=== PATIENT | female | born 1970 | race Caucasian/White ===

== ENCOUNTER 2020-02-21 06:21 | Inpatient (IN) | payer BC ==
[2020-02-21] VITALS (18 sets, daily range): BP systolic 96–142; BP diastolic 60–82
[~2020-02-21] VITALS: Ht 172.7 cm; Wt 100.0 kg
[2020-02-21] MEDS ORDERED: normal saline 1000ml 1,000 ML IV ONE (06:37)
[2020-02-21] MEDS: diatr meglu/diatrizoate 30ml oral sol.-(3 dose) bottle PO SCH ×2 (06:57→07:47)
[2020-02-21 07:07] LABS: BASOPHILS % (AUTO) 0.2 % (0-1); LYMPHOCYTES # (AUTO) 0.5 X10'3 (1.1-4.8); MEAN CORPUSCULAR VOLUME 92.4 FL (78-98); MONOCYTES # (AUTO) 0.2 X10'3 (0-0.9); NEUTROPHILS % (AUTO) 92.9 % (42-75)
[2020-02-21 07:09] LABS: EOSINOPHILS % (AUTO) 0.3 % (0-6); HEMATOCRIT 37.3 % (35.0-45.0); LYMPHOCYTES % (AUTO) 4.7 % (21-51); MEAN CORPUSCULAR HEMOGLOBIN 29.8 PG (27.0-31.0); MEAN CORPUSCULAR HGB CONC 32.3 g/dL (33.0-36.5); MEAN PLATELET VOLUME 8.5 FL (7.4-10.4); MONOCYTES % (AUTO) 1.9 % (2-12); PLATELET COUNT 277 X10'3 (140-440); RED BLOOD COUNT 4.04 X10'6 (4.20-5.60); RED CELL DISTRIBUTION WIDTH 14.5 % (11.5-14.5); WHITE BLOOD COUNT 9.7 X10'3 (4.5-11.0)
[2020-02-21 07:26] LABS: ALANINE AMINOTRANSFERASE 29 U/L (12-78); ALBUMIN 3.6 G/DL (3.4-5.0); ALBUMIN/GLOBULIN RATIO 0.9 (1.1-1.5); ALKALINE PHOSPHATASE 131 IU/L (46-116); ANION GAP 11 (8-16); BILIRUBIN,TOTAL 0.4 MG/DL (0.1-1.0); BLOOD UREA NITROGEN 10 MG/DL (7-18); BUN/CREATININE RATIO 16.9 (6.6-38.0); CALCIUM 8.7 MG/DL (8.5-10.1); CHLORIDE 106 MMOL/L (99-107); CREATININE 0.59 MG/DL (0.40-0.90); GLUCOSE 170 MG/DL (70-104); LIPASE 136 U/L (73-393); SODIUM 141 MMOL/L (135-145); TOTAL CARBON DIOXIDE 23.8 MMOL/L (24-32); TOTAL PROTEIN 7.6 G/DL (6.4-8.2); eGFR > 90 ML/MIN
[2020-02-21 07:27] LABS: ASPARTATE AMINO TRANSFERASE 67 U/L (10-37); POTASSIUM 4.1 MMOL/L (3.5-5.1)
[2020-02-21 07:30] LABS: PARTIAL THROMBOPLASTIN TIME 21 SECONDS (22-32)
[2020-02-21 07:35] LABS: CLARITY,URINE CLEAR (Clear); COLOR,URINE STRAW (Yellow); GLUCOSE, URINE 500 mg/dl (Neg); KETONES,URINE NEGATIVE (Neg); LEUKOCYTE ESTERASE ,URINE NEGATIVE (Neg); NITRITES, URINE NEGATIVE (Neg); OCCULT BLOOD,URINE TRACE-LYSED (Neg); PH,URINE 6.5 (4.8-8.0); PROTEIN,URINE NEGATIVE (Neg); UROBILINOGEN,URINE 0.2 E.U/dL (0.2-1.0)
[2020-02-21 07:36] LABS: UA COLLECTION TYPE CLN CATCH MIDSTREAM
[2020-02-21 07:41] LABS: BACTERIA,URINE NONE SEEN /HPF (Neg); MUCUS STRANDS NONE SEEN /LPF (Neg); RBC,URINE 0-2 /HPF (0-2); SQUAMOUS EPITHELIAL CELL,UR FEW /LPF (FEW); WBC,URINE 0-4 /HPF (0-4)
[2020-02-21] MEDS ORDERED: iohexol 300mg/ml 100ml inj. ONE (08:04)
[2020-02-21] MEDS ORDERED: ondansetron/PF 4mg/2ml inj IV ONE (09:15)
[2020-02-21] MEDS ORDERED: morphine 4 MG/ML inj SYRINge IV ONE (09:15)
[2020-02-21] MEDS ORDERED: METH60CP PO (09:37)
--- NOTE | 2020-02-21 09:38 | NUR ---
Pt transported to OR via [facility] with OR staff.
--- NOTE | 2020-02-21 09:43 | NUR ---
Called report to CLAUDIA Rosenthal in recovery room. 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
[2020-02-21] MEDS ORDERED: ringers solution, lacted 1,000 ML IV SCH (09:46)
[2020-02-21] MEDS ORDERED: ringers solution, lacted 1,000 ML IV ONE (09:46)
[2020-02-21] MEDS ORDERED: morphine 4 MG/ML inj SYRINge IV PRN (09:50)
[2020-02-21] MEDS ORDERED: morphine 2 MG/ML inj. syringe IV PRN ×3 (09:50→12:40)
[2020-02-21] MEDS ORDERED: fentaNYL/PF 50MCG/1 ML 2ML syringe IV PRN ×2 (09:50)
[2020-02-21] MEDS ORDERED: ondansetron/PF 4mg/2ml inj IV PRN ×3 (09:50→12:40)
[2020-02-21] MEDS ORDERED: labetalol 20mg/4ml (5mg/ml) syringe IV PRN (09:50)
[2020-02-21] MEDS ORDERED: hydrALAZINE 20mg/ml inj. IV PRN (09:50)
[2020-02-21] MEDS ORDERED: acetaminophen 325mg tablet PO PRN ×3 (10:55→12:40)
[2020-02-21] MEDS ORDERED: mag hydrox/Alum hydrox/simeth 30ml oral suspension PO PRN ×2 (10:55→12:40)
[2020-02-21] MEDS ORDERED: magnesium hydroxide 30ml (MOM) UD suspension PO PRN ×2 (10:55→12:40)
[2020-02-21] MEDS ORDERED: midazolam 2 mg/2 ml injection ONE (11:12)
[2020-02-21] MEDS ORDERED: fentaNYL/PF 50MCG/1 ML 2ML syringe ONE ×2 (11:12→12:17)
[2020-02-21] MEDS ORDERED: BUPIVAcaine/PF 2.5 mg/ml (0.25%) 30ml vial ONE (11:14)
[2020-02-21] MEDS ORDERED: LIDOcaine 1% 30ml preserv. free vial ONE (11:14)
[2020-02-21] MEDS ORDERED: BUPIVAcaine/PF 2.5mg/ml (0.25%) 10ml vial ONE (11:14)
[2020-02-21] MEDS ORDERED: LIDOcaine 2% (20mg/ml) 5ml vial ONE (11:15)
[2020-02-21] MEDS ORDERED: BUPIVACAINE liposomal/PF 13.3 MG/ML vial IM ONE (11:15)
[2020-02-21] MEDS ORDERED: dexamethasone sod phosphate 10mg/ml inj ONE (11:15)
[2020-02-21] MEDS ORDERED: sevoflurane 250ml liquid IH ONE (11:15)
[2020-02-21] MEDS ORDERED: glycopyrrolate 0.2mg/ml inj ONE (11:15)
[2020-02-21] MEDS ORDERED: neostigmine methylsulfate 1 MG/ML 10ml vial ONE (11:15)
[2020-02-21] MEDS ORDERED: propofol inj 20 ML IV ONE (11:15)
[2020-02-21] MEDS ORDERED: LIDOcaine 1%/PF 5ML 10 MG/ML VIAL ONE (11:15)
[2020-02-21] MEDS ORDERED: metoprolol tartrate 1mg/ml inj IV ONE ×2 (11:15→11:58)
[2020-02-21] MEDS ORDERED: rocuronium 10mg/ml inj IV ONE (11:15)
[2020-02-21] MEDS ORDERED: ondansetron/PF 4mg/2ml inj ONE (11:16)
[2020-02-21] MEDS ORDERED: ceFAZolin 1000mg inj ONE ×2 (11:17)
[2020-02-21] MEDS ORDERED: labetalol 20mg/4ml (5mg/ml) syringe IV ONE ×2 (11:28→11:44)
[2020-02-21] MEDS ORDERED: METH20TA40 PO (11:43)
[2020-02-21] MEDS ORDERED: dextrose 5%-1/2 normal saline 1,000 ML IV SCH (12:39)
[2020-02-21] MEDS ORDERED: HYDROcodone/acetaminophen 10/325mg tab PO PRN (12:40)
[2020-02-21] MEDS ORDERED: HYDROcodone/acetaminophen 5mg/325mg tablet PO PRN (12:40)
--- NOTE | 2020-02-21 12:56 | NUR ---
Received from OR via , accompanied by Anesthesiologist DR CAMPOS and report given by Anesthesiolgist. AWAKENS TO VOICE. VITALS STABLE. DRESSING DI. ZEYNEP PAIN. ALLEN WITH CLEAR URINE.
[2020-02-21] MEDS ORDERED: naloxone 0.4 mg/ml inj IV PRN (13:00)
[2020-02-21] MEDS ORDERED: CADD PCA waste documentation MC PRN (13:00)
--- NOTE | 2020-02-21 13:59 | NUR ---
Received report from cupola melter Galo for Joyce primary RN. All questions answered. Patient will be coming to the floor soon. Primary RN Joyce will assume patient care when patient is on the floor.
--- NOTE | 2020-02-21 14:16 | NUR ---
Report called to receiving nurse. Transferred via BED Belongings . Special Issues communicated to receiving nurse. AWAKE AND ORIENTED. VITALS STABLE. DRESSING DI. ZEYNEP PAIN. TO SURGICAL RM 345B AT THIS TIME.
[2020-02-21] MEDS: HYDROmorphone/NS 1 mg/ml CADD 50 ML IV SCH ×6 (14:35→23:00)
--- NOTE | 2020-02-21 14:45 | NUR ---
Patient in room [facility]. I have received report from Deann TAYLOR and had the opportunity to ask questions and assume patient care.
--- NOTE | 2020-02-21 17:43 | NUR ---
post op VSS. Midline incision CDI, patient using dilaudid cadd pump appropriately, pain is 4/10. commenced on clear liquid diet. Tolerating well. all cares given IDC in place patient has good urine output.
--- NOTE | 2020-02-21 18:05 | NUR ---
Problems reprioritized. Patient report given, questions answered & plan of care reviewed with Maine Olivas RN.
--- NOTE | 2020-02-21 18:29 | NUR ---
Patient in room [facility]. I have received report from CLAUDIA Cook and had the opportunity to ask questions and assume patient care.
[2020-02-21] MEDS: heparin, porcine 5000 units/ml vial SQ SCH (20:21)
[2020-02-22] MEDS: HYDROmorphone/NS 1 mg/ml CADD 50 ML IV SCH ×12 (01:00→23:00)
[2020-02-22 04:00] VITALS: BP 113/69
[2020-02-22 05:26] LABS: BASOPHILS % (AUTO) 0.3 % (0-1); EOSINOPHILS % (AUTO) 0.2 % (0-6); HEMATOCRIT 34.1 % (35.0-45.0); HEMOGLOBIN 11.2 g/dl (12.0-16.0); LYMPHOCYTES # (AUTO) 1.4 X10'3 (1.1-4.8); MEAN CORPUSCULAR HEMOGLOBIN 30.3 PG (27.0-31.0); MEAN CORPUSCULAR HGB CONC 32.9 g/dL (33.0-36.5); MEAN CORPUSCULAR VOLUME 92.1 FL (78-98); MEAN PLATELET VOLUME 7.6 FL (7.4-10.4); MONOCYTES # (AUTO) 0.7 X10'3 (0-0.9); MONOCYTES % (AUTO) 7.1 % (2-12); NEUTROPHILS # (AUTO) 7.3 X10'3 (1.8-7.7); NEUTROPHILS % (AUTO) 77.4 % (42-75); PLATELET COUNT 231 X10'3 (140-440); RED BLOOD COUNT 3.71 X10'6 (4.20-5.60); RED CELL DISTRIBUTION WIDTH 14.7 % (11.5-14.5); WHITE BLOOD COUNT 9.4 X10'3 (4.5-11.0)
[2020-02-22 05:41] LABS: ALBUMIN 2.8 G/DL (3.4-5.0); ANION GAP 5 (8-16); BLOOD UREA NITROGEN 7 MG/DL (7-18); BUN/CREATININE RATIO 12.1 (6.6-38.0); CALCIUM 8.4 MG/DL (8.5-10.1); CHLORIDE 108 MMOL/L (99-107); CREATININE 0.58 MG/DL (0.40-0.90); GLUCOSE 109 MG/DL (70-104); SODIUM 144 MMOL/L (135-145); TOTAL CARBON DIOXIDE 31.1 MMOL/L (24-32); eGFR > 90 ML/MIN
--- NOTE | 2020-02-22 06:20 | NUR ---
Problems reprioritized. Patient report given, questions answered & plan of care reviewed with CLAUDIA Giordano.
--- NOTE | 2020-02-22 06:30 | NUR ---
Patient in room [facility]. I have received report from CLAUDIA Giordano and had the opportunity to ask questions and assume patient care.
--- NOTE | 2020-02-22 06:30 | NUR ---
Patient in room [facility]. I have received report from Maine Olivas RN and had the opportunity to ask questions and assume patient care.
[2020-02-22 07:19] VITALS: BP 126/78
[2020-02-22] MEDS: heparin, porcine 5000 units/ml vial SQ SCH ×2 (08:52→20:18)
[2020-02-22 11:00] VITALS: BP 123/78
[2020-02-22 17:01] VITALS: BP 132/87
--- NOTE | 2020-02-22 17:39 | NUR ---
Problems reprioritized. Patient report given, questions answered & plan of care reviewed with CLAUDIA Giordano.
--- NOTE | 2020-02-22 18:50 | NUR ---
Problems reprioritized. Patient report given, questions answered & plan of care reviewed with Ernst TAYLOR.
[2020-02-22 23:34] VITALS: BP 111/84
[2020-02-23] MEDS: HYDROmorphone/NS 1 mg/ml CADD 50 ML IV SCH ×5 (01:00→09:00)
[2020-02-23 05:12] LABS: BASOPHILS # (AUTO) 0.1 X10'3 (0-0.2); BASOPHILS % (AUTO) 0.7 % (0-1); EOSINOPHILS # (AUTO) 0.2 X10'3 (0-0.9); EOSINOPHILS % (AUTO) 2.3 % (0-6); HEMATOCRIT 37.3 % (35.0-45.0); HEMOGLOBIN 12.2 g/dl (12.0-16.0); LYMPHOCYTES # (AUTO) 1.3 X10'3 (1.1-4.8); MEAN CORPUSCULAR HEMOGLOBIN 30.6 PG (27.0-31.0); MEAN CORPUSCULAR HGB CONC 32.8 g/dL (33.0-36.5); MEAN CORPUSCULAR VOLUME 93.4 FL (78-98); MEAN PLATELET VOLUME 7.8 FL (7.4-10.4); MONOCYTES # (AUTO) 0.8 X10'3 (0-0.9); MONOCYTES % (AUTO) 9.4 % (2-12); NEUTROPHILS # (AUTO) 6.4 X10'3 (1.8-7.7); NEUTROPHILS % (AUTO) 72.6 % (42-75); PLATELET COUNT 252 X10'3 (140-440); RED BLOOD COUNT 3.99 X10'6 (4.20-5.60); RED CELL DISTRIBUTION WIDTH 14.2 % (11.5-14.5); WHITE BLOOD COUNT 8.9 X10'3 (4.5-11.0)
--- NOTE | 2020-02-23 05:30 | NUR ---
FC removed, pt tolerated well
[2020-02-23 05:37] LABS: ALBUMIN 2.9 G/DL (3.4-5.0); ANION GAP 5 (8-16); BLOOD UREA NITROGEN 12 MG/DL (7-18); BUN/CREATININE RATIO 20.7 (6.6-38.0); CALCIUM 8.7 MG/DL (8.5-10.1); CHLORIDE 102 MMOL/L (99-107); CREATININE 0.58 MG/DL (0.40-0.90); GLUCOSE 104 MG/DL (70-104); POTASSIUM 3.7 MMOL/L (3.5-5.1); SODIUM 141 MMOL/L (135-145); TOTAL CARBON DIOXIDE 34.3 MMOL/L (24-32); eGFR > 90 ML/MIN
--- NOTE | 2020-02-23 06:41 | NUR ---
Patient in room [facility]. I have received report from Ernst TAYLOR and had the opportunity to ask questions and assume patient care.
[2020-02-23 07:00] VITALS: BP 112/71
--- NOTE | 2020-02-23 07:06 | NUR ---
Patient in room [facility]. I have received report from CLAUDIA Manzo and had the opportunity to ask questions and assume patient care.
[2020-02-23] MEDS: heparin, porcine 5000 units/ml vial SQ SCH ×2 (08:05→19:56)
[2020-02-23 08:07] VITALS: BP 112/71
--- NOTE | 2020-02-23 08:37 | NUR ---
chart access as instructor for [facility]
[2020-02-23 11:20] VITALS: BP 107/63
[2020-02-23] MEDS: oxyCODONE/APAP 5-325mg tablet PO PRN ×3 (13:06→21:20)
[2020-02-23 14:12] VITALS: BP 110/71
--- NOTE | 2020-02-23 17:28 | NUR ---
Problems reprioritized. Patient report given, questions answered & plan of care reviewed with CLAUDIA Manzo.
[2020-02-23 18:00] VITALS: BP 96/58
--- NOTE | 2020-02-23 18:20 | NUR ---
Problems reprioritized. Patient report given, questions answered & plan of care reviewed with Ernst TAYLOR.
[2020-02-24] VITALS: BP 119/73
[2020-02-24] MEDS: oxyCODONE/APAP 5-325mg tablet PO PRN ×3 (03:17→12:32)
[2020-02-24 06:08] LABS: ALBUMIN 2.6 G/DL (3.4-5.0); ANION GAP 3 (8-16); BLOOD UREA NITROGEN 11 MG/DL (7-18); BUN/CREATININE RATIO 16.4 (6.6-38.0); CALCIUM 8.1 MG/DL (8.5-10.1); CHLORIDE 102 MMOL/L (99-107); CREATININE 0.67 MG/DL (0.40-0.90); GLUCOSE 97 MG/DL (70-104); POTASSIUM 3.7 MMOL/L (3.5-5.1); SODIUM 139 MMOL/L (135-145); TOTAL CARBON DIOXIDE 34.1 MMOL/L (24-32); eGFR > 90 ML/MIN
[2020-02-24 06:17] LABS: BASOPHILS % (AUTO) 0.6 % (0-1); EOSINOPHILS # (AUTO) 0.2 X10'3 (0-0.9); HEMATOCRIT 34.4 % (35.0-45.0); HEMOGLOBIN 11.5 g/dl (12.0-16.0); LYMPHOCYTES # (AUTO) 1.4 X10'3 (1.1-4.8); LYMPHOCYTES % (AUTO) 17.5 % (21-51); MEAN CORPUSCULAR HEMOGLOBIN 30.9 PG (27.0-31.0); MEAN CORPUSCULAR HGB CONC 33.3 g/dL (33.0-36.5); MEAN CORPUSCULAR VOLUME 92.7 FL (78-98); MEAN PLATELET VOLUME 7.6 FL (7.4-10.4); MONOCYTES # (AUTO) 0.6 X10'3 (0-0.9); MONOCYTES % (AUTO) 7.7 % (2-12); NEUTROPHILS # (AUTO) 5.7 X10'3 (1.8-7.7); NEUTROPHILS % (AUTO) 71.2 % (42-75); PLATELET COUNT 238 X10'3 (140-440); RED BLOOD COUNT 3.71 X10'6 (4.20-5.60); RED CELL DISTRIBUTION WIDTH 13.9 % (11.5-14.5)
[2020-02-24] MEDS: heparin, porcine 5000 units/ml vial SQ SCH (08:19)
[2020-02-24 08:45] VITALS: BP 126/75
[2020-02-24 12:06] VITALS: BP 124/67
[2020-02-24] MEDS ORDERED: PER5325T PO (14:57)
--- NOTE | 2020-02-24 15:45 | NUR ---
Patient discharged home, patient alert, oriented, and appropriate for discharge. Patient prescription called into [facility], no paper script provided. Patient verbalized understanding of discharge instructions and will follow up with MD Pritchett in 1-2 weeks. Patient IV's removed. Patient not on tele. No home meds were brought in. Patient left with all belongings and was escorted down by a member of the staff.
== END 2020-02-24 15:45 | disposition home or self-care (01) | DRG 356 ==
LOC: ER 06:22 → SUR 3N 10:56
PROVIDERS: ADMIT Surgery; ATTEND Surgery
PROC: 0DQV0ZZ Repair Mesentery, Open Approach (ICD-10-PCS; principal; 2020-02-21 11:15)
DX: K46.9 Unspecified abdominal hernia without obstruction or gangrene (principal); K56.2 Volvulus; E27.9 Disorder of adrenal gland, unspecified; Z98.84 Bariatric surgery status
CPT/HCPCS: 96361; 96374; 96375; 99285; Z7506; Z7508; 36415; 74177; 80048; 80053; 81001; 83690; 83880; 85025; 85610; 85730; 87081; A4215; A4618; A7000; C1758; C9290; G0378; J0690; J1100; J1170; J1644; J2001; J2250; J2270; J2405; J2704; J2710; J3010; J3490; J7030; J7120; Q9963; Q9967

== ENCOUNTER 2021-01-05 08:11 | Day surgery (SDC) | payer BC ==
[2020-12-29 15:15] LABS: BASOPHILS # (AUTO) 0.1 X10'3 (0-0.2); BASOPHILS % (AUTO) 1.1 % (0-1); EOSINOPHILS % (AUTO) 0.8 % (0-6); LYMPHOCYTES # (AUTO) 1.5 X10'3 (1.1-4.8); LYMPHOCYTES % (AUTO) 29.1 % (21-51); MEAN CORPUSCULAR HEMOGLOBIN 30.6 PG (27.0-31.0); MEAN CORPUSCULAR HGB CONC 32.6 g/dL (33.0-36.5); MEAN CORPUSCULAR VOLUME 93.9 FL (78-98); MEAN PLATELET VOLUME 7.5 FL (7.4-10.4); MONOCYTES # (AUTO) 0.4 X10'3 (0-0.9); NEUTROPHILS # (AUTO) 3.1 X10'3 (1.8-7.7); PRE OP HEMATOCRIT 36.7 % (35.0-45.0); PRE OP PLATELET COUNT 321 X10'3 (140-440); RED BLOOD COUNT 3.91 X10'6 (4.20-5.60); RED CELL DISTRIBUTION WIDTH 15.6 % (11.5-14.5)
[2020-12-29 15:30] LABS: ALBUMIN 3.8 G/DL (3.4-5.0); ALBUMIN/GLOBULIN RATIO 0.9 (1.1-1.5); ALKALINE PHOSPHATASE 143 IU/L (46-116); BLOOD UREA NITROGEN 11 MG/DL (7-18); CALCIUM 8.9 MG/DL (8.5-10.1); CHLORIDE 105 MMOL/L (99-107); PRE OP ALT 21 U/L (30-65); PRE OP ANION GAP 6 (8-16); PRE OP AST 55 U/L (10-37); PRE OP BILIRUB, TOTAL 0.3 MG/DL (0.0-1.0); PRE OP GLUCOSE 107 MG/DL (70-104); PRE OP POTASSIUM 3.7 MMOL/L (3.4-5.1); PRE OP SODIUM 141 MMOL/L (135-145); TOTAL CARBON DIOXIDE 29.9 MMOL/L (24-32); eGFR > 90 ML/MIN
[~2021-01-05] VITALS: Ht 172.7 cm; Wt 104.3 kg
[2021-01-05] VITALS (20 sets, daily range): BP systolic 136–190; BP diastolic 89–101
[~2021-01-05 08:11] MED LIST: ACET-2971 PO; ESTR1VAG VG; METH20TA40 PO; OXYB5TAB29 PO; cefazolin/dext.iso 2gm/100ml IV ONE; famotidine 20mg tablet PO ONE; ringers solution, lacted 1,000 ML IV SCH
[2021-01-05] MEDS ORDERED: LIDOcaine 1% (10mg/ml) 2ml vial ONE (08:24)
[2021-01-05] MEDS ORDERED: BUPIVAcaine/PF 2.5 mg/ml (0.25%) 30ml vial ONE (10:01)
[2021-01-05] MEDS ORDERED: BUPIVACAINE liposomal/PF 13.3 MG/ML vial IM ONE (10:01)
[2021-01-05] MEDS ORDERED: LIDOcaine 1% 30ml preserv. free vial ONE (10:01)
[2021-01-05] MEDS ORDERED: BUPIVAcaine/PF 2.5mg/ml (0.25%) 10ml vial ONE (10:01)
[2021-01-05] MEDS ORDERED: fentaNYL/PF 50MCG/1 ML 2ML syringe IV PRN (10:15)
[2021-01-05] MEDS ORDERED: ringers solution, lacted 1,000 ML IV SCH (10:15)
[2021-01-05] MEDS ORDERED: hydrALAZINE 20mg/ml inj. IV PRN (10:15)
[2021-01-05] MEDS ORDERED: labetalol 20mg/4ml (5mg/ml) syringe IV PRN (10:15)
[2021-01-05] MEDS ORDERED: morphine 2 MG/ML inj. syringe IV PRN (10:15)
[2021-01-05] MEDS ORDERED: ondansetron/PF 4mg/2ml inj IV PRN (10:15)
[2021-01-05] MEDS ORDERED: midazolam 1 mg/ML 2ml injection ONE (10:21)
[2021-01-05] MEDS ORDERED: fentaNYL/PF 50MCG/1 ML 2ML syringe ONE ×2 (10:21)
[2021-01-05] MEDS ORDERED: propofol inj 20 ML IV ONE (10:28)
[2021-01-05] MEDS ORDERED: rocuronium 10mg/ml inj IV ONE (10:28)
[2021-01-05] MEDS ORDERED: glycopyrrolate 0.2mg/ml inj ONE (10:28)
[2021-01-05] MEDS ORDERED: LIDOcaine 2% (20mg/ml) 5ml vial ONE (10:28)
[2021-01-05] MEDS ORDERED: ondansetron/PF 4mg/2ml inj ONE (10:30)
[2021-01-05] MEDS ORDERED: labetalol 20mg/4ml (5mg/ml) syringe IV ONE (10:32)
--- NOTE | 2021-01-05 12:06 | NUR ---
Received from OR via [facility], accompanied by Anesthesiologist DR CAMPOS and report given by Anesthesiologist. PT VERY DROWSY, ABDOMEN W/3 LAP SITES W/BANDAIDS CDI. Addendum: 01/05/21 at 1244 by Marisol Chapman RN Amended: Links added.
[2021-01-05] MEDS ORDERED: oxyCODONE/APAP 5-325mg tablet PO PRN ×2 (12:20)
[2021-01-05] MEDS: morphine 4 MG/ML inj SYRINge IV PRN ×2 (12:24→12:46)
[2021-01-05] MEDS: fentaNYL/PF 50MCG/1 ML 2ML syringe IV PRN ×2 (13:06→13:37)
[2021-01-05] MEDS ORDERED: HYDROcodone/acetaminophen 10/325mg tab PO PRN ×2 (13:50)
--- NOTE | 2021-01-05 16:06 | NUR ---
PT UP AND ABLE TO AMBULATE SAFELY, VOIDED, PAIN TOLERABLE. D/C INSTRUCTIONS GIVEN AND GONE OVER W/PT WHO VERBALIZED UNDERSTANDING. PT D/CD TO HOME VIA W/C TO PRIVATE VEHICLE. Addendum: 01/05/21 at 1618 by Marisol Chapman RN Amended: Links added.
== END 2021-01-05 16:06 | disposition home or self-care (01) ==
LOC: PAS 08:11
PROVIDERS: ATTEND Surgery
DX: K43.2 Incisional hernia without obstruction or gangrene (principal); M62.08 Separation of muscle (nontraumatic), other site; Z20.822 Contact with and (suspected) exposure to COVID-19; E66.9 Obesity, unspecified; Z68.32 Body mass index [BMI] 32.0-32.9, adult; Z98.84 Bariatric surgery status; Z98.890 Other specified postprocedural states; Z72.89 Other problems related to lifestyle; Z79.899 Other long term (current) drug therapy
CPT/HCPCS: 36415; 49654; 64488; 80053; 82948; 85025; 93005; C9290; J2001; J2250; J2270; J2405; J2704; J3010; J3490; S2900; U0003; U0005; A4215; A4618; C1781; J7120

== ENCOUNTER 2022-01-16 01:59 | Emergency (ER) | payer BC ==
[~2022-01-16] VITALS: Ht 170.2 cm; Wt 95.5 kg
[~2022-01-16 01:59] MED LIST changes: -cefazolin/dext.iso 2gm/100ml IV ONE; -famotidine 20mg tablet PO ONE; -ringers solution, lacted 1,000 ML IV SCH
[2022-01-16 02:51] LABS: BASOPHILS % (AUTO) 0.7 % (0-1); EOSINOPHILS % (AUTO) 0.6 % (0-6); HEMATOCRIT 36.5 % (35.0-45.0); HEMOGLOBIN 11.8 g/dl (12.0-16.0); LYMPHOCYTES % (AUTO) 13.6 % (21-51); MEAN CORPUSCULAR HEMOGLOBIN 29.3 PG (27.0-31.0); MEAN CORPUSCULAR HGB CONC 32.4 g/dL (33.0-36.5); MEAN CORPUSCULAR VOLUME 90.4 FL (78-98); MEAN PLATELET VOLUME 7.6 FL (7.4-10.4); MONOCYTES # (AUTO) 0.4 X10'3 (0-0.9); MONOCYTES % (AUTO) 5.6 % (2-12); NEUTROPHILS # (AUTO) 5.7 X10'3 (1.8-7.7); NEUTROPHILS % (AUTO) 79.5 % (42-75); PLATELET COUNT 338 X10'3 (140-440); RED BLOOD COUNT 4.03 X10'6 (4.20-5.60); RED CELL DISTRIBUTION WIDTH 14.5 % (11.5-14.5); WHITE BLOOD COUNT 7.2 X10'3 (4.5-11.0)
[2022-01-16 03:14] LABS: ALANINE AMINOTRANSFERASE 14 U/L (12-78); ALBUMIN 3.7 G/DL (3.4-5.0); ALBUMIN/GLOBULIN RATIO 0.9 (1.1-1.5); ALKALINE PHOSPHATASE 133 IU/L (46-116); ANION GAP 10 (8-16); ASPARTATE AMINO TRANSFERASE 52 U/L (10-37); BILIRUBIN,TOTAL 0.3 MG/DL (0.1-1.0); BLOOD UREA NITROGEN 13 MG/DL (7-18); CHLORIDE 104 MMOL/L (99-107); GLUCOSE 143 MG/DL (70-104); POTASSIUM 3.4 MMOL/L (3.5-5.1); SODIUM 142 MMOL/L (135-145); TOTAL CARBON DIOXIDE 27.9 MMOL/L (24-32); TOTAL PROTEIN 7.9 G/DL (6.4-8.2); eGFR > 90 ML/MIN
[2022-01-16 03:47] LABS: LIPASE 682 U/L (73-393)
[2022-01-16 04:26] LABS: CLARITY,URINE CLEAR (Clear); COLOR,URINE YELLOW (Yellow); GLUCOSE, URINE NEGATIVE (Neg); KETONES,URINE 40 mg/dl (Neg); LEUKOCYTE ESTERASE ,URINE NEGATIVE (Neg); NITRITES, URINE NEGATIVE (Neg); OCCULT BLOOD,URINE TRACE-INTACT (Neg); PROTEIN,URINE NEGATIVE (Neg); UROBILINOGEN,URINE 0.2 E.U/dL (0.2-1.0)
[2022-01-16 04:27] LABS: URINE HCG NEGATIVE (NEG)
[2022-01-16 04:29] LABS: UA COLLECTION TYPE STRAIGHT CATH
[2022-01-16 04:38] LABS: BACTERIA,URINE FEW /HPF (Neg); CAL OXALATE CRYSTALS 1+ /HPF (NEGATIVE); SQUAMOUS EPITHELIAL CELL,UR FEW /LPF (FEW); WBC,URINE 0-4 /HPF (0-4)
[2022-01-16] MEDS ORDERED: normal saline 1000ML IV soln IVB ONE (10:05)
[2022-01-16] MEDS ORDERED: pantoprazole 40 MG vial IV SCH (10:05)
[2022-01-16] MEDS ORDERED: ondansetron/PF 4mg/2ml inj IV ONE (10:05)
[2022-01-16] MEDS: diatr meglu/diatrizoate 30ml oral sol.-(3 dose) bottle PO SCH ×2 (10:44→11:21)
[2022-01-16] MEDS ORDERED: pantoprazole 40MG/NS 100ML BAG 100 ML IV ONE (11:10)
[2022-01-16] MEDS ORDERED: ONDA8TAB13 PO (13:46)
[2022-01-16] MEDS ORDERED: ACET-3068 PO (13:46)
[2022-01-16] MEDS ORDERED: morphine 2 MG/ML inj. syringe IV PRN (13:50)
[2022-01-16 14:47] VITALS: BP 146/90
== END 2022-01-16 14:49 | disposition home or self-care (01) ==
LOC: ER 02:00
DX: K85.90 Acute pancreatitis without necrosis or infection, unspecified (principal); R10.33 Periumbilical pain; R11.0 Nausea; I10 Essential (primary) hypertension; Z98.890 Other specified postprocedural states; Z79.899 Other long term (current) drug therapy
CPT/HCPCS: 36415; 80053; 81001; 81025; 83690; 85025; 96361; 96374; 96375; 99285; C9113; J2270; J2405; J7030; Q9963